=== PATIENT | female | born 1985 | race Two or more races ===

== ENCOUNTER 2022-12-03 12:21 | Emergency (ER) | payer MEDICAID ==
[~2022-12-03] VITALS: Ht 167.6 cm; Wt 71.7 kg
--- NOTE | 2022-12-03 12:30 | NUR ---
RECEVED PT 37 YRS FEMALE CAME FROM HOME FOR [facility] HGB WAS 6.6 IN MD OFFICE YESTERDAY DINESS ANY WEEKNESS OR PASS OUT
--- NOTE | 2022-12-03 12:40 | NUR ---
SEEN BY PROVIDER
--- NOTE | 2022-12-03 12:55 | NUR ---
SEEN BY DR HALE
--- NOTE | 2022-12-03 13:00 | NUR ---
DINESES ANY ACTIVE BLEEDING
--- NOTE | 2022-12-03 13:01 | NUR ---
UA SENT TO LAB
[2022-12-03 13:49] LABS: CALCIUM, SERUM 8.8 mg/dL (8.5-10.1); CREATININE 0.7 mg/dL (0.6-1.3); POTASSIUM 3.6 mmol/L (3.5-5.1)
[2022-12-03 13:52] LABS: BASOPHILS % (AUTO) 0.5 % (0.0-2.0); HEMATOCRIT 25 % (33-45); LYMPHOCYTES # (AUTO) 2.6 K/uL (0.8-4.8); LYMPHOCYTES % (AUTO) 43.3 % (20.0-44.0); MEAN CORPUSCULAR HGB CONC 29 g/dl (31.0-36.0); MEAN CORPUSCULAR VOLUME 56 fL (82-100); MONOCYTES # (AUTO) 0.3 K/uL (0.1-1.30); MONOCYTES % (AUTO) 5.6 % (2.0-12.0); NEUTROPHILS % (AUTO) 49.6 % (43.0-81.0); PLATELET COUNT (AUTO) 259 K/uL (150-450); RED BLOOD CELL COUNT(AUTO) 4.39 MIL/uL (4.0-5.2)
[2022-12-03 13:54] LABS: BILIRUBIN,DIRECT 0.1 mg/dL (0.0-0.2); BILIRUBIN,TOTAL 0.3 mg/dL (0.2-1.0); TOTAL PROTEIN, SERUM 7.8 g/dL (6.4-8.2)
--- NOTE | 2022-12-03 13:55 | NUR ---
HGB 7.0 DR. HAIRSTON NOTEFED AND AWARE NO ORDER
--- NOTE | 2022-12-03 14:10 | NUR ---
DR. HAIRSTON AT BED SIDE SPOOK WITH PT ABOUT HGB 7.0 AND PLAN OF CARE
--- NOTE | 2022-12-03 14:39 | NUR ---
Patient discharged to home in stable condition. Written and verbal after care instructions given. Patient verbalizes understanding of instruction.
[2022-12-03 14:51] VITALS: BP 115/63
[2022-12-04 04:39] LABS: BASOPHILS % (MANUAL) 0 % (0.0-2.0); EOSINOPHILS % (MANUAL) 0 % (0-4); LYMPHOCYTES % (MANUAL) 39 % (16-48); MONOCYTES % (MANUAL) 8 % (0-11.0); NEUTROPHILS % (MANUAL) 53 (42-76)
== END 2022-12-03 14:52 | disposition home or self-care (01) ==
LOC: ER 12:36
DX: D64.9 Anemia, unspecified (principal)
CPT/HCPCS: 36415; 80048-TC; 80076-TC; 84703-TC; 85025-TC; 85730-TC; 86850-TC